=== PATIENT | female | born 1995 | race Caucasian/White ===

== ENCOUNTER 2016-08-12 19:59 | Emergency (ER) | payer MEDICAID, OTHER ==
[~2016-08-12 19:59] MED LIST: MULT1TAB46; RANI150 PO; Z.0.BCPILL PO; ZOFR4TAB3 SL
[2016-08-12 20:01] VITALS: BP 157/94; PULSE 88; RESP 16; TEMP 98.4; O2SAT 100
[2016-08-12] MEDS ORDERED: CLIN150 PO (21:28)
[2016-08-12] MEDS ORDERED: diphenhydrAMINE HCL 50 MG/ML VIAL IV PUSH ONE (21:30)
[2016-08-12] MEDS ORDERED: DEXAMETHASONE SOD PHOS 20 MG/5 ML VIAL IV PUSH ONE (21:30)
[2016-08-12] MEDS ORDERED: CLINDAMYCIN INJ 600 MG in SODIUM CHLORIDE 0.9% INJ 100 ML IV ONE (21:30)
--- NOTE | 2016-08-12 21:32 | PD ---
HPI Chief Complaint: insect bite Time Seen by Provider: 23:11 Travel History International Travel<30 days: No Contact w/Intl Traveler<30days: No Traveled to known affect area: No History of Present Illness HPI 21-year-old white female presents to the department with complaints of pain in her nose and facial swelling after a alleged insect bite yesterday. Her right nostril has become increasing painful and swollen. She had squeezed her nose in the shower earlier today. She has small amount of drainage come out. She has subsequently noted increasing pain in her nose and swelling around her right eye. She denies any fever chills. No nausea vomiting. No numbness, tingling or weakness. No visual changes. No drainage. No glasses or contacts. PFSH Past Medical History Narrative Medical Patient states that she has had insect or spider bites in the past. Integumentary: Yes ( '12) Tetanus Vaccination: > 5 Years : 0 Para: 0 Past Surgical History Eye Surgery: Yes ( A CHILD) Social History Alcohol Use: No Tobacco Use: Yes (7 cigs/day) Substance Use: No Allergies-Medications (Allergen,Severity, Reaction): Coded Allergies: No Known Allergies (Verified , 12/30/14) Reported Meds & Prescriptions Reported Meds & Active Scripts Active Cleocin (Clindamycin HCl) 150 Mg Cap 300 Mg PO Q6H Zofran ODT (Ondansetron HCl) 4 Mg Tab 4 Mg SL Q6H PRN FOR NAUSEA/VOMITING Zantac 150 Mg Tab (Ranitidine HCl) 150 Mg Tab 150 Mg PO BID 30 Days Reported Multi Vitamin Daily (Multiple Vitamin) 1 Tab Tab Control Pills (Miscellaneous Medication) Tab 1 Tab PO DAILY Review of Systems Except as stated in HPI: all other systems reviewed are Neg Physical Exam Narrative GENERAL: Well-developed, well-nourished in no acute distress. Nontoxic appearing. HEAD: Patient has swelling of the right upper or lower eyelids, right cheek and right naris. There is a area of tenderness to the right naris with erythema in the area which the patient states that she had a spider bite. No fluctuance or pointing. EYES: Pupils equal round and reactive. Extraocular motions intact. No scleral icterus. No injection or drainage. ENT: TMs clear without erythema. The external auditory canals clear. Nose: clear . Posterior pharynx is pink and moist. No tonsillar edema or exudate. Uvula midline. Airway patent. NECK: Trachea midline.Supple, nontender, moves head freely. No central bony tenderness or spasm. CARDIOVASCULAR: Regular rate and rhythm without murmurs, gallops, or rubs. RESPIRATORY: Clear to auscultation. Breath sounds equal bilaterally. No wheezes , rales, or rhonchi. GASTROINTESTINAL: Abdomen soft, non-tender, nondistended. No hepato-splenomegaly , or palpable masses. No guarding. EXTREMITIES: No clubbing, cyanosis, or edema. No joint tenderness, effusion, or edema noted. BACK: Nontender without deformity or crepitance. No flank tenderness. Data Data Last Documented VS Vital Signs Date Time Temp Pulse Resp B/P Pulse Ox O2 Delivery O2 Flow Rate FiO2 08/12/16 22:12 16 08/12/16 20:01 98.4 88 157/94 100 Room Air Orders Iv Access Insert/Monitor (08/12/16 21:26) Clindamycin Inj (Cleocin Inj) (08/12/16 21:30) Dexamethasone Inj (Decadron Inj) (08/12/16 21:30) Diphenhydramine Inj (Benadryl Inj) (08/12/16 21:30) Tetanus/Diphtheria Tox Adult (Tetanus/Di (08/12/16 21:45) Complete Blood Count With Diff (08/12/16 21:32) Basic Metabolic Panel (Bmp) (08/12/16 21:32) Labs Laboratory Tests Test 08/12/16 22:00 White Blood Count 10.9 TH/MM3 Red Blood Count 4.84 MIL/MM3 Hemoglobin 14.4 GM/DL Hematocrit 41.6 % Mean Corpuscular Volume 86.0 FL Mean Corpuscular Hemoglobin 29.7 PG Mean Corpuscular Hemoglobin 34.5 % Concent Red Cell Distribution Width 12.9 % Platelet Count 243 TH/MM3 Mean Platelet Volume 10.1 FL Neutrophils (%) (Auto) 67.3 % Lymphocytes (%) (Auto) 22.5 % Monocytes (%) (Auto) 6.9 % Eosinophils (%) (Auto) 2.8 % Basophils (%) (Auto) 0.5 % Neutrophils # (Auto) 7.4 TH/MM3 Lymphocytes # (Auto) 2.5 TH/MM3 Monocytes # (Auto) 0.8 TH/MM3 Eosinophils # (Auto) 0.3 TH/MM3 Basophils # (Auto) 0.1 TH/MM3 CBC Comment DIFF FINAL Differential Comment MDM Medical Decision Making Medical Screen Exam Complete: Yes Emergency Medical Condition: Yes Medical Record Reviewed: Yes Differential Diagnosis MDM: High Differential diagnoses: Abscess, folliculitis, cellulitis, lymphangitis, abrasion, contact dermatitis Narrative Course IV access is obtained. CBC, chemistry. Clindamycin 600 mg IV, Benadryl 50 mg IV, and Decadron 10 mg IV. Tetanus immunization. This is facial cellulitis Diagnosis Primary Impression: Facial cellulitis Additional Instructions: Rest. Elevation. keep clean and dry. Warm compresses. Daily wound care with soap, water and Neosporin. Three Advil every 6 hours. Clindamycin. Recheck in the ER in 24 hours.. Return to the ER for any problems. Med/Other Pt SpecificInfo: Prescription(s) given Scripts Clindamycin (Cleocin)150 Mg Tqi001 Mg PO Q6H #56 CAP Prov:Sid Olivares MD 08/12/16 Disposition: 01 DISCHARGE HOME Condition: Stable Jude Ham Aug 12, 2016 21:32
[2016-08-12] MEDS ORDERED: TETANUS/DIPHTHERIA TOXOID ADULT 0.5 ML VIAL IM ONE (21:45)
[2016-08-12 22:19] LABS: AUTOMATED NEUTROPHIL # 7.4 TH/MM3 (1.8-7.7); BASOPHIL # 0.1 TH/MM3 (0-0.2); BASOPHIL % 0.5 % (0.0-2.0); EOSINOPHIL # 0.3 TH/MM3 (0-0.4); EOSINOPHIL % 2.8 % (0.0-4.0); HEMATOCRIT 41.6 % (35.0-46.0); HEMO FLAGS DIFF FINAL; LYMPH % 22.5 % (9.0-44.0); LYMPHOCYTE # 2.5 TH/MM3 (1.0-4.8); MEAN CORPUSCULAR HEMOGLOBIN 29.7 PG (27.0-34.0); MEAN CORPUSCULAR HGB CONC 34.5 % (32.0-36.0); MONO % 6.9 % (0.0-8.0); NEUT % 67.3 % (16.0-70.0); PLATELET COUNT 243 TH/MM3 (150-450); RED BLOOD COUNT 4.84 MIL/MM3 (4.00-5.30); RED CELL DISTRIBUTION WIDTH 12.9 % (11.6-17.2); WHITE BLOOD COUNT 10.9 TH/MM3 (4.0-11.0)
[2016-08-12 23:00] VITALS: BP 134/76; PULSE 85; RESP 16; TEMP 98.7; O2SAT 98
== END 2016-08-13 00:04 | disposition home or self-care (01) ==
LOC: NEPB 19:59
DX: L03.211 Cellulitis of face (principal); Z23 Encounter for immunization
CPT/HCPCS: 85025; 90471; 90714; 96365; 96375; 99283; J1100; J1200; 80048